=== PATIENT | male | born 1965 | race Caucasian/White ===

== ENCOUNTER 2017-07-02 10:08 | Day surgery (SDC) | payer OTHER ==
[2017-07-02] MEDS ORDERED: LIDOCAINE 2% (SDV) 5 ML INJ (11:11)
[2017-07-02] MEDS ORDERED: PROPOFOL 40 ML (11:11)
== END 2017-07-02 12:18 | disposition home or self-care (01) ==
LOC: GIL 10:08
DX: Z12.11 Encounter for screening for malignant neoplasm of colon (principal); K64.8 Other hemorrhoids; E78.5 Hyperlipidemia, unspecified
CPT/HCPCS: 45378